=== PATIENT | male | born 1965 | race Two or more races ===

== ENCOUNTER 2020-12-25 04:27 | Day surgery (SDC) | payer OTHER ==
[2020-12-24 14:43] VITALS: BMI 23.8
[2020-12-25] MEDS ORDERED: ceFAZolin SODIUM 1 GM VIAL IVPB ONE (08:24)
[2020-12-25] MEDS ORDERED: HEPARIN NA (PORCINE) 5,000 UNITS/ML 1ML VIAL ONE ×2 (08:35→08:54)
[2020-12-25] MEDS ORDERED: LIDOCAINE HCL 1%, 10 MG/ML (20ML VIAL) ONE (08:35)
[2020-12-25] MEDS ORDERED: BUPIVACAINE HCL/PF 0.5% (5MG/ML) 10 ML VIAL ONE (08:36)
[2020-12-25] MEDS ORDERED: PROPOFOL 20 ML ONE ×3 (08:54→09:36)
[2020-12-25] MEDS ORDERED: LIDOCAINE HCL/PF 2% SDV 5ML VIAL ONE (08:54)
[2020-12-25] MEDS ORDERED: MIDAZOLAM HCL 2 MG/2 ML SINGLE DOSE VIAL ONE (08:54)
[2020-12-25] MEDS ORDERED: ceFAZolin SODIUM 1 GM VIAL ONE (09:23)
[2020-12-25] MEDS ORDERED: LIDOCAINE HCL 1%, 10 MG/ML (20ML VIAL) PNB ONE (09:26)
[2020-12-25] MEDS ORDERED: HEPARIN NA (PORCINE) 5,000 UNITS/ML 1ML VIAL SQ ONE (09:30)
[2020-12-25] MEDS ORDERED: PHENYLEPHRINE HCL 10 MG/1 ML SINGLE DOSE VIAL ONE (09:50)
[2020-12-25] MEDS ORDERED: oxyCODONE HCL 5 MG TABLET PO PRN (10:17)
[2020-12-25] MEDS ORDERED: ONDANSETRON 4 MG/2 ML VIAL IVPUSH PRN ×2 (10:17→10:36)
[2020-12-25] MEDS ORDERED: LACTATED RINGERS SOLUTION 1,000 ML IV SCH (10:30)
[2020-12-25] MEDS: CLOPIDOGREL BISULFATE 75 MG TABLET (FP) PO SCH (10:45)
[2020-12-25] MEDS: oxyCODONE HCL 5 MG TABLET PO PRN (13:38)
[2020-12-26] MEDS: oxyCODONE HCL 5 MG TABLET PO PRN (06:34)
[2020-12-26] MEDS ORDERED: glipiZIDE 5 MG TABLET (FP) PO SCH (07:00)
[2020-12-26] MEDS: LACTATED RINGERS SOLUTION 1,000 ML IV SCH ×2 (07:16→09:21)
[2020-12-26] MEDS: CLOPIDOGREL BISULFATE 75 MG TABLET (FP) PO SCH (09:25)
[2020-12-26] MEDS ORDERED: LOSARTAN POTASSIUM 25 MG TABLET PO SCH (10:00)
[2020-12-26 14:06] VITALS: BP 118/69; PULSE 90; TEMP 98
[2020-12-26] MEDS ORDERED: ATORVASTATIN CA 20 MG TABLET (FP) PO SCH (22:00)
== END 2020-12-26 14:33 | disposition home or self-care (01) ==
LOC: JASUSAT 04:27 → JASU-SURG 04:27 → JERBED 12:42 → J5S 13:15 → JASUSAT 12-26 14:33
PROVIDERS: ATTEND Surgery Vascular Surgery
PROC: 047K3D1 Dilation of Right Femoral Artery with Intraluminal Device, using Drug-Coated Balloon, Percutaneous Approach (ICD-10-PCS; principal; 2020-12-25 09:00)
DX: I70.211 Atherosclerosis of native arteries of extremities with intermittent claudication, right leg (principal); E11.9 Type 2 diabetes mellitus without complications
CPT/HCPCS: 37227; C1877; C2623; 76000-TC-FY; 82962; 94760; J1644

== ENCOUNTER 2021-01-07 04:17 | Day surgery (SDC) | payer OTHER ==
[2021-01-07 12:06] VITALS: BMI 23.8
[2021-01-07] MEDS ORDERED: HEPARIN NA (PORCINE) 5,000 UNITS/ML 1ML VIAL ONE ×3 (14:55→15:21)
[2021-01-07] MEDS ORDERED: LIDOCAINE HCL 1%, 10 MG/ML (20ML VIAL) ONE (14:55)
[2021-01-07] MEDS ORDERED: LIDOCAINE HCL/PF 2% SDV 5ML VIAL ONE (15:06)
[2021-01-07] MEDS ORDERED: PROPOFOL 20 ML ONE (15:07)
[2021-01-07] MEDS ORDERED: KETAMINE HCL 200 MG/20 ML VIAL ONE (15:07)
[2021-01-07] MEDS ORDERED: ceFAZolin SODIUM 1 GM VIAL ONE (15:20)
[2021-01-07] MEDS ORDERED: ceFAZolin SODIUM 1 GM VIAL IVPB ONE (15:33)
[2021-01-07] MEDS ORDERED: LIDOCAINE HCL 1%, 10 MG/ML (20ML VIAL) INF ONE (15:47)
[2021-01-07] MEDS ORDERED: oxyCODONE HCL 5 MG TABLET PO PRN (15:48)
[2021-01-07] MEDS ORDERED: ONDANSETRON 4 MG/2 ML VIAL IVPUSH PRN (15:48)
[2021-01-07] MEDS ORDERED: ACETAMINOPHEN 325 MG TABLET (FP) PO PRN (15:48)
[2021-01-07] MEDS ORDERED: CLOPIDOGREL BISULFATE 75 MG TABLET (FP) ONE (16:29)
[2021-01-07] MEDS ORDERED: CLOPIDOGREL BISULFATE 75 MG TABLET (FP) PO ONE (16:30)
[2021-01-07 19:15] VITALS: BP 114/79; PULSE 74; TEMP 97.5
== END 2021-01-07 19:10 | disposition home or self-care (01) ==
LOC: JASU-SURG 04:17
PROVIDERS: ATTEND Surgery Vascular Surgery
PROC: 047M3DZ Dilation of Right Popliteal Artery with Intraluminal Device, Percutaneous Approach (ICD-10-PCS; 2021-01-07)
PROC: 047K34Z Dilation of Right Femoral Artery with Drug-eluting Intraluminal Device, Percutaneous Approach (ICD-10-PCS; principal; 2021-01-07 14:00)
DX: I70.211 Atherosclerosis of native arteries of extremities with intermittent claudication, right leg (principal); Z72.0 Tobacco use; E11.9 Type 2 diabetes mellitus without complications; I10 Essential (primary) hypertension
CPT/HCPCS: 37226; C1877; 76000-TC-FY; 82962; 94760; C9803; J1644; U0003; U0005

== ENCOUNTER 2021-01-09 15:08 | Emergency (ER) | payer OTHER ==
[2021-01-09 15:31] VITALS: TEMP 97.9; BMI 24.0
[2021-01-09 17:53] LABS: BASO % 0.5 % (0-2.0); EOS % 8.7 % (0-4.5); HEMATOCRIT 43.7 % (35.4-49); HEMOGLOBIN 14.9 GM/dL (11.7-16.9); LYMPH % 19.4 % (8-40); MCH 29.4 pg (25.7-33.7); MCHC 34.1 g/dl (32.0-35.9); MEAN CELL VOLUME 86.4 fl (80-96); MEAN PLT VOLUME 10.1 fl (7.5-11.1); MONO % 6.7 % (3.8-10.2); NEUT % 64.7 % (42.8-82.8); PLATELET COUNT 71 10^3/uL (134-434); RBC 5.06 M/mm3 (4.00-5.60); RDW 13.6 % (11.9-15.9); WHITE BLOOD COUNT 8.5 K/mm3 (4.0-10.0)
[2021-01-09 18:01] LABS: INR 1.26 (0.83-1.09); PROTHROMBIN TIME (PATIENT) 14.1 SEC (9.7-13.0)
[2021-01-09 18:04] LABS: ACTIVATED PTT 29.3 SECONDS (25.2-36.5)
[2021-01-09 18:31] LABS: CHLORIDE 104 mmol/L (98-107); SODIUM 138 mmol/L (136-145)
[2021-01-09 18:36] LABS: ALBUMIN 3.5 g/dl (3.4-5.0); ANION GAP 8 MMOL/L (8-16); BLOOD UREA NITROGEN 6.3 mg/dL (7-18); CALCIUM 8.3 mg/dL (8.5-10.1); CO2 25 mmol/L (21-32); GLUCOSE,RANDOM 85 mg/dL (74-106)
[2021-01-09 18:40] LABS: CREATININE 0.8 mg/dL (0.55-1.3); SGOT/AST 27 U/L (15-37); SGPT/ALT 36 U/L (13-61)
[2021-01-09 18:42] LABS: ALK PHOS 83 U/L (45-117); TOT PROT 7.6 g/dl (6.4-8.2)
[2021-01-09 19:47] VITALS: BP 117/77; PULSE 81
[2021-01-09] MEDS ORDERED: ACETAMINOPHEN 500 MG TABLET (FP) PO ONE (20:36)
[2021-01-09] MEDS ORDERED: ACETAMINOPHEN 325 MG TABLET (FP) ONE (21:47)
== END 2021-01-10 01:02 | disposition home or self-care (01) ==
LOC: JER 15:08
DX: I70.211 Atherosclerosis of native arteries of extremities with intermittent claudication, right leg (principal)
CPT/HCPCS: 36415; 71045-TC-FY; 73630-TC-RT-FY; 75635-TC; 80053; 82550; 82553; 83605; 84484; 85025; 85610; 85730; 86850; 86900; 86901; 93005; 93010; 99285-25; C9803; U0003; U0005

== ENCOUNTER 2021-02-05 15:34 | Emergency (ER) | payer OTHER ==
[2021-02-05 16:03] VITALS: TEMP 97.8; BMI 21.7
[2021-02-05 19:34] LABS: BASO % 0.7 % (0-2.0); EOS % 4.3 % (0-4.5); HEMATOCRIT 44.7 % (35.4-49); HEMOGLOBIN 15.2 GM/dL (11.7-16.9); LYMPH % 27.9 % (8-40); MCHC 33.9 g/dl (32.0-35.9); MEAN CELL VOLUME 85.6 fl (80-96); MONO % 7.7 % (3.8-10.2); NEUT % 59.4 % (42.8-82.8); RBC 5.22 M/mm3 (4.00-5.60); RDW 13.8 % (11.9-15.9); WHITE BLOOD COUNT 7.9 K/mm3 (4.0-10.0)
[2021-02-05 19:44] LABS: INR 1.19 (0.83-1.09); PROTHROMBIN TIME (PATIENT) 13.4 SEC (9.7-13.0)
[2021-02-05 19:47] LABS: ACTIVATED PTT 27.3 SECONDS (25.2-36.5)
[2021-02-05 20:00] LABS: CALCIUM 9.2 mg/dL (8.5-10.1)
[2021-02-05 20:01] LABS: ALBUMIN 3.9 g/dl (3.4-5.0)
[2021-02-05 20:04] LABS: CREATININE 0.8 mg/dL (0.55-1.3)
[2021-02-05 20:05] LABS: BILIRUBIN,TOTAL 1.1 mg/dL (0.2-1); TOT PROT 7.7 g/dl (6.4-8.2)
[2021-02-05] MEDS ORDERED: GABAPENTIN 300 MG CAPSULE PO ONE (20:06)
[2021-02-05] MEDS ORDERED: GABAPENTIN 100 MG CAPSULE ONE (20:23)
[2021-02-05 20:25] LABS: MEAN PLT VOLUME 8.9 fl (7.5-11.1); PLATELET COUNT 65 10^3/uL (134-434); PLATELET ESTIMATE MOD DECREASED
[2021-02-05 22:21] VITALS: BP 129/78; PULSE 88
== END 2021-02-05 22:21 | disposition left against medical advice (07) ==
LOC: JER 15:34
DX: I70.211 Atherosclerosis of native arteries of extremities with intermittent claudication, right leg (principal); M79.604 Pain in right leg
CPT/HCPCS: 36415; 80053; 85025; 85610; 85730; 86850; 86900; 86901; 99284-25

== ENCOUNTER 2021-02-08 16:21 | Emergency (ER) | payer OTHER ==
[2021-02-08 16:30] VITALS: BP 104/64; PULSE 105; TEMP 98; BMI 21.7
[2021-02-08 19:35] LABS: ALBUMIN 3.5 g/dl (3.4-5.0); BLOOD UREA NITROGEN 7.7 mg/dL (7-18); CALCIUM 8.9 mg/dL (8.5-10.1)
[2021-02-08 19:39] LABS: CREATININE 0.8 mg/dL (0.55-1.3)
[2021-02-08 19:40] LABS: BILIRUBIN,TOTAL 0.6 mg/dL (0.2-1); TOT PROT 7.2 g/dl (6.4-8.2)
== END 2021-02-08 22:45 | disposition home or self-care (01) ==
LOC: JER 16:21
DX: I70.211 Atherosclerosis of native arteries of extremities with intermittent claudication, right leg (principal)
CPT/HCPCS: 36415; 75635-TC; 80053; 83605; 99284-25; Q9967

== ENCOUNTER 2021-02-09 14:21 | Inpatient (IN) | payer OTHER ==
[2021-02-09 16:47] LABS: BASO % 1.5 % (0-2.0); EOS % 2.6 % (0-4.5); HEMATOCRIT 47.5 % (35.4-49); HEMOGLOBIN 16.4 GM/dL (11.7-16.9); MCH 29.8 pg (25.7-33.7); MCHC 34.6 g/dl (32.0-35.9); MEAN CELL VOLUME 86.2 fl (80-96); MEAN PLT VOLUME 9.7 fl (7.5-11.1); MONO % 7.1 % (3.8-10.2); NEUT % 63.8 % (42.8-82.8); PLATELET COUNT 69 10^3/uL (134-434); RBC 5.51 M/mm3 (4.00-5.60); RDW 13.5 % (11.9-15.9); WHITE BLOOD COUNT 8.1 K/mm3 (4.0-10.0)
[2021-02-09 16:53] LABS: INR 1.16 (0.83-1.09); PROTHROMBIN TIME (PATIENT) 13.6 SEC (9.7-13.0)
[2021-02-09 16:55] LABS: ACTIVATED PTT 30.2 SECONDS (25.2-36.5)
[2021-02-09 17:09] LABS: CALCIUM 9.3 mg/dL (8.5-10.1)
[2021-02-09 17:10] LABS: BLOOD UREA NITROGEN 7.4 mg/dL (7-18)
[2021-02-09 17:15] LABS: TOT PROT 8.6 g/dl (6.4-8.2)
[2021-02-09 17:18] LABS: ALBUMIN 4.4 g/dl (3.4-5.0)
[2021-02-09] MEDS ORDERED: HEPARIN NA (PORCINE) 5,000 UNITS/ML 1ML VIAL ONE (20:30)
[2021-02-09] MEDS ORDERED: LIDOCAINE HCL 1%, 10 MG/ML (20ML VIAL) ONE (20:30)
[2021-02-09] MEDS ORDERED: MIDAZOLAM HCL 2 MG/2 ML SINGLE DOSE VIAL ONE (20:46)
[2021-02-09] MEDS ORDERED: PROPOFOL 20 ML ONE (20:46)
[2021-02-09] MEDS ORDERED: SUCCINYLCHOLINE CHLORIDE 200 MG/10 ML SYRINGE ONE (20:52)
[2021-02-09] MEDS ORDERED: ceFAZolin SODIUM 1 GM VIAL IVPB ONE (20:55)
[2021-02-09] MEDS ORDERED: LIDOCAINE HCL 1%, 10 MG/ML (50 mL VIAL) INF ONE (20:59)
[2021-02-09] MEDS ORDERED: HEPARIN INFUSION - 25,000 UNITS/500 ML INFUS.BAG IVPB ONE (21:39)
[2021-02-09] MEDS ORDERED: ALTEPLASE (CATHFLO) 15 MG in SODIUM CHLORIDE 135 ML CVP ONE (22:30)
[2021-02-09] MEDS ORDERED: SODIUM CHLORIDE 1,000 ML IV SCH (23:45)
[2021-02-09] MEDS ORDERED: HEPARIN INFUSION - 25,000 UNITS/500 ML INFUS.BAG IVPB SCH (23:45)
[2021-02-10] MEDS ORDERED: morphine SULFATE 4 MG/ML VIAL IVPUSH PRN (00:22)
[2021-02-10 04:02] LABS: BASO % 1.1 % (0-2.0); EOS % 1.9 % (0-4.5); HEMATOCRIT 41.5 % (35.4-49); HEMOGLOBIN 14.2 GM/dL (11.7-16.9); LYMPH % 19.9 % (8-40); MCH 29.4 pg (25.7-33.7); MCHC 34.2 g/dl (32.0-35.9); MEAN PLT VOLUME 9.4 fl (7.5-11.1); MONO % 7.5 % (3.8-10.2); NEUT % 69.6 % (42.8-82.8); PLATELET COUNT 50 10^3/uL (134-434); RBC 4.83 M/mm3 (4.00-5.60); RDW 13.5 % (11.9-15.9); WHITE BLOOD COUNT 10.8 K/mm3 (4.0-10.0)
[2021-02-10 04:09] LABS: INR 1.27 (0.83-1.09); PROTHROMBIN TIME (PATIENT) 14.9 SEC (9.7-13.0)
[2021-02-10 04:21] LABS: CALCIUM 8.2 mg/dL (8.5-10.1)
[2021-02-10 04:25] LABS: CREATININE 0.7 mg/dL (0.55-1.3)
[2021-02-10] MEDS: INSULIN SLIDING SCALE (NOVOLOG) 1 VIAL SQ SCH ×4 (06:44→22:36)
[2021-02-10] MEDS ORDERED: MUPIROCIN 2% TOPICAL OINTMENT FOR DECOLONIZATION NS SCH (10:00)
[2021-02-10] MEDS: KCL 10 MEQ IVPB 10 MEQ/100 ML INFUS.BAG IVPB SCH ×2 (10:22→12:04)
[2021-02-10 10:44] LABS: EOS % 1.4 % (0-4.5); HEMATOCRIT 40.6 % (35.4-49); HEMOGLOBIN 13.9 GM/dL (11.7-16.9); LYMPH % 18.7 % (8-40); MCH 29.4 pg (25.7-33.7); MCHC 34.3 g/dl (32.0-35.9); MEAN CELL VOLUME 85.6 fl (80-96); MEAN PLT VOLUME 9.9 fl (7.5-11.1); MONO % 7.8 % (3.8-10.2); NEUT % 71.1 % (42.8-82.8); PLATELET COUNT 49 10^3/uL (134-434); RBC 4.75 M/mm3 (4.00-5.60); WHITE BLOOD COUNT 9.3 K/mm3 (4.0-10.0)
[2021-02-10 10:46] LABS: INR 1.23 (0.83-1.09); PROTHROMBIN TIME (PATIENT) 14.4 SEC (9.7-13.0)
[2021-02-10 10:49] LABS: ACTIVATED PTT 63.3 SECONDS (25.2-36.5)
[2021-02-10 11:03] LABS: BLOOD UREA NITROGEN 8.1 mg/dL (7-18); CALCIUM 8.1 mg/dL (8.5-10.1)
[2021-02-10 11:06] LABS: CREATININE 0.6 mg/dL (0.55-1.3)
[2021-02-10] MEDS ORDERED: LORazepam 2 MG/ML SDV VIAL IM ONE ×2 (11:52→11:59)
[2021-02-10] MEDS ORDERED: ALTEPLASE (CATHFLO) 15 MG in SODIUM CHLORIDE 135 ML CVP ONE ×3 (12:00→12:53)
[2021-02-10] MEDS ORDERED: PT OWN MED DRAWER 7, Y5N ONE (14:15)
[2021-02-10] MEDS ORDERED: ceFAZolin SODIUM 1 GM VIAL IVPB ONE (19:59)
[2021-02-10] MEDS ORDERED: HEPARIN NA (PORCINE) 5,000 UNITS/ML 1ML VIAL ONE (20:06)
[2021-02-10] MEDS ORDERED: MIDAZOLAM HCL 2 MG/2 ML SINGLE DOSE VIAL ONE ×2 (20:11)
[2021-02-10] MEDS ORDERED: LIDOCAINE HCL 1%, 10 MG/ML (20ML VIAL) INF ONE (20:18)
[2021-02-10 20:43] LABS: HEMATOCRIT 35.6 % (35.4-49); HEMOGLOBIN 12.1 GM/dL (11.7-16.9); MCH 29.3 pg (25.7-33.7); MEAN CELL VOLUME 86.1 fl (80-96); PLATELET COUNT 38 10^3/uL (134-434); RBC 4.14 M/mm3 (4.00-5.60); RDW 13.7 % (11.9-15.9); WHITE BLOOD COUNT 7.9 K/mm3 (4.0-10.0)
[2021-02-10] MEDS ORDERED: CHLORHEXIDINE GLUCONATE 4% CLEANSER FOR DECOLONIZATION TP SCH (22:00)
[2021-02-10] MEDS: SODIUM CHLORIDE 1,000 ML IV SCH (22:34)
[2021-02-10] MEDS: NICOTINE 21 MG/24 HOURS TOPICAL PATCH TD SCH (22:34)
[2021-02-10] MEDS: CHLORHEXIDINE GLUCONATE 4% CLEANSER FOR DECOLONIZATION TP SCH (22:35)
[2021-02-10] MEDS: MUPIROCIN 2% TOPICAL OINTMENT FOR DECOLONIZATION NS SCH (22:50)
[2021-02-11] MEDS ORDERED: MELATONIN 5 MG TABLETS PO ONE (00:08)
[2021-02-11] MEDS ORDERED: APIXABAN 5 MG TABLET PO SCH (02:00)
[2021-02-11] MEDS: INSULIN SLIDING SCALE (NOVOLOG) 1 VIAL SQ SCH ×4 (06:36→21:02)
[2021-02-11 07:08] LABS: INR 1.54 (0.83-1.09); PROTHROMBIN TIME (PATIENT) 18.1 SEC (9.7-13.0)
[2021-02-11 07:09] LABS: BASO % 0.7 % (0-2.0); EOS % 3.4 % (0-4.5); HEMATOCRIT 33.6 % (35.4-49); HEMOGLOBIN 11.3 GM/dL (11.7-16.9); LYMPH % 18.2 % (8-40); MCHC 33.8 g/dl (32.0-35.9); MEAN CELL VOLUME 85.7 fl (80-96); MEAN PLT VOLUME 9.9 fl (7.5-11.1); MONO % 8.1 % (3.8-10.2); NEUT % 69.6 % (42.8-82.8); PLATELET COUNT 40 10^3/uL (134-434); RBC 3.91 M/mm3 (4.00-5.60); RDW 13.7 % (11.9-15.9); WHITE BLOOD COUNT 9.1 K/mm3 (4.0-10.0)
[2021-02-11 07:11] LABS: ACTIVATED PTT 29.1 SECONDS (25.2-36.5)
[2021-02-11 07:33] LABS: BLOOD UREA NITROGEN 14.5 mg/dL (7-18); CALCIUM 7.9 mg/dL (8.5-10.1); MAGNESIUM 2.2 mg/dL (1.8-2.4)
[2021-02-11 07:36] LABS: CREATININE 0.9 mg/dL (0.55-1.3)
[2021-02-11 07:47] LABS: ALBUMIN 3.3 g/dl (3.4-5.0); TOT PROT 6.4 g/dl (6.4-8.2)
[2021-02-11] MEDS ORDERED: HEPARIN NA (PORCINE) 5,000 UNITS/ML 1ML VIAL IVPUSH PRN ×3 (08:49→20:14)
[2021-02-11] MEDS ORDERED: HEPARIN - 25,000 UNIT in SODIUM CHLORIDE 495 ML IV SCH (09:15)
[2021-02-11] MEDS: GABAPENTIN 100 MG CAPSULE PO SCH (09:26)
[2021-02-11] MEDS: LOSARTAN POTASSIUM 25 MG TABLET PO SCH (09:28)
[2021-02-11] MEDS: NICOTINE 21 MG/24 HOURS TOPICAL PATCH TD SCH (09:30)
[2021-02-11] MEDS: ATORVASTATIN CA 20 MG TABLET (FP) PO SCH (09:30)
[2021-02-11] MEDS ORDERED: PT OWN MED DRAWER 7, Y5N ONE ×2 (09:40→10:44)
[2021-02-11] MEDS: MUPIROCIN 2% TOPICAL OINTMENT FOR DECOLONIZATION NS SCH ×2 (09:41→21:02)
[2021-02-11 12:17] LABS: ERYTHROCYTE SEDIMENTATION RATE 16 mm/hr (0-20)
[2021-02-11] MEDS: SODIUM CHLORIDE 1,000 ML IV SCH (13:55)
[2021-02-11] MEDS ORDERED: ACETAMINOPHEN 1000 MG/100 ML VIAL IVPB PRN (14:15)
[2021-02-11] MEDS: morphine SULFATE 4 MG/ML VIAL IVPUSH PRN (14:27)
[2021-02-11 15:59] VITALS: BMI 20.5
[2021-02-11] MEDS ORDERED: HEPARIN NA (PORCINE) 5,000 UNITS/ML 1ML VIAL ONE (16:10)
[2021-02-11] MEDS ORDERED: LIDOCAINE HCL 1%, 10 MG/ML (20ML VIAL) ONE (16:10)
[2021-02-11] MEDS ORDERED: MIDAZOLAM HCL 2 MG/2 ML SINGLE DOSE VIAL ONE (18:23)
[2021-02-11] MEDS ORDERED: ceFAZolin SODIUM 1 GM VIAL ONE (18:28)
[2021-02-11] MEDS ORDERED: PROPOFOL 20 ML ONE ×2 (18:33)
[2021-02-11] MEDS ORDERED: ceFAZolin SODIUM 1 GM VIAL IVPB ONE ×2 (18:35)
[2021-02-11] MEDS ORDERED: LIDOCAINE HCL 1%, 10 MG/ML (50 mL VIAL) INF ONE (18:42)
[2021-02-11] MEDS ORDERED: HEPARIN SOD,PORK IN 0.45% NACL 25,000 UNITS/500 ML INFUS.BAG IVPB SCH (20:15)
[2021-02-11] MEDS ORDERED: diphenhydrAMINE HCL 25 MG CAPSULE (FP) PO ONE (20:26)
[2021-02-11] MEDS: LORazepam 2 MG/ML SDV VIAL IVPUSH SCH (20:45)
[2021-02-11] MEDS: CHLORHEXIDINE GLUCONATE 4% CLEANSER FOR DECOLONIZATION TP SCH (21:02)
[2021-02-11] MEDS ORDERED: MUPIROCIN 2% TOPICAL OINTMENT FOR DECOLONIZATION NS SCH (22:00)
[2021-02-11] MEDS ORDERED: CHLORHEXIDINE GLUCONATE 4% CLEANSER FOR DECOLONIZATION TP SCH (22:00)
[2021-02-12] MEDS: morphine SULFATE 4 MG/ML VIAL IVPUSH PRN (02:03)
[2021-02-12] MEDS: LORazepam 2 MG/ML SDV VIAL IVPUSH SCH ×2 (07:13→13:36)
[2021-02-12] MEDS: INSULIN SLIDING SCALE (NOVOLOG) 1 VIAL SQ SCH ×2 (07:13→10:58)
[2021-02-12] MEDS ORDERED: PT OWN MED DRAWER 7, Y5N ONE (07:15)
[2021-02-12] MEDS: metFORMIN HCL 500 MG TABLET (FP) PO SCH ×2 (07:15→07:47)
[2021-02-12] MEDS: glipiZIDE 5 MG TABLET (FP) PO SCH ×2 (07:16→07:50)
[2021-02-12] MEDS: SODIUM CHLORIDE 1,000 ML IV SCH (07:16)
[2021-02-12] MEDS ORDERED: SODIUM CHLORIDE 250 ML IV STA (10:12)
[2021-02-12] MEDS: ATORVASTATIN CA 20 MG TABLET (FP) PO SCH (11:07)
[2021-02-12] MEDS: GABAPENTIN 100 MG CAPSULE PO SCH (11:07)
[2021-02-12] MEDS: LOSARTAN POTASSIUM 25 MG TABLET PO SCH (11:07)
[2021-02-12] MEDS: NICOTINE 21 MG/24 HOURS TOPICAL PATCH TD SCH (11:08)
[2021-02-12] MEDS: MUPIROCIN 2% TOPICAL OINTMENT FOR DECOLONIZATION NS SCH (11:08)
[2021-02-12] MEDS ORDERED: ACETAMINOPHEN 1000 MG/100 ML VIAL IVPB PRN (11:32)
[2021-02-12] MEDS ORDERED: SODIUM CHLORIDE 1,000 ML IV SCH (11:32)
[2021-02-12] MEDS ORDERED: morphine SULFATE 4 MG/ML VIAL IVPUSH PRN (11:32)
[2021-02-12 13:40] VITALS: TEMP 98.4
[2021-02-12] MEDS ORDERED: ENOXAPARIN NA (PORCINE) 60 MG/0.6 ML DISP.SYRIN SQ SCH ×2 (13:45→14:01)
[2021-02-12] MEDS ORDERED: APIXABAN 5 MG TABLET PO ONE (15:35)
[2021-02-12] MEDS ORDERED: INSULIN SLIDING SCALE (NOVOLOG) 1 VIAL SQ SCH (16:30)
[2021-02-12] MEDS ORDERED: glipiZIDE 5 MG TABLET (FP) PO SCH (16:30)
[2021-02-12] MEDS ORDERED: metFORMIN HCL 500 MG TABLET (FP) PO SCH (16:30)
[2021-02-12 16:31] VITALS: BP 115/87; PULSE 120
[2021-02-12 17:27] LABS: INR 1.33 (0.83-1.09); PROTHROMBIN TIME (PATIENT) 15.6 SEC (9.7-13.0)
[2021-02-12] MEDS ORDERED: WARFARIN NA 5 MG TABLET PO SCH (18:00)
[2021-02-12] MEDS ORDERED: CHLORHEXIDINE GLUCONATE 4% CLEANSER FOR DECOLONIZATION TP SCH (22:00)
[2021-02-12] MEDS ORDERED: MUPIROCIN 2% TOPICAL OINTMENT FOR DECOLONIZATION NS SCH (22:00)
[2021-02-13] MEDS ORDERED: GABAPENTIN 100 MG CAPSULE PO SCH (10:00)
[2021-02-13] MEDS ORDERED: NICOTINE 21 MG/24 HOURS TOPICAL PATCH TD SCH (10:00)
[2021-02-13] MEDS ORDERED: LOSARTAN POTASSIUM 25 MG TABLET PO SCH (10:00)
[2021-02-13] MEDS ORDERED: ATORVASTATIN CA 20 MG TABLET (FP) PO SCH (22:00)
== END 2021-02-12 16:30 | disposition home or self-care (01) | DRG 272 ==
LOC: JER 14:21 → JASUSAT 15:15 → JICU 23:39 → JASUSAT 02-10 00:18
PROVIDERS: ADMIT Surgery Vascular Surgery; ATTEND Surgery Vascular Surgery
PROC: 047K341 Dilation of Right Femoral Artery with Drug-eluting Intraluminal Device, using Drug-Coated Balloon, Percutaneous Approach (ICD-10-PCS; 2021-02-10)
PROC: B41DZZZ Fluoroscopy of Aorta and Bilateral Lower Extremity Arteries (ICD-10-PCS; 2021-02-10)
PROC: 3E03317 Introduction of Other Thrombolytic into Peripheral Vein, Percutaneous Approach (ICD-10-PCS; 2021-02-10)
PROC: B41DZZZ Fluoroscopy of Aorta and Bilateral Lower Extremity Arteries (ICD-10-PCS; 2021-02-10)
PROC: 04CK3ZZ Extirpation of Matter from Right Femoral Artery, Percutaneous Approach (ICD-10-PCS; 2021-02-11)
PROC: 047P341 Dilation of Right Anterior Tibial Artery with Drug-eluting Intraluminal Device, using Drug-Coated Balloon, Percutaneous Approach (ICD-10-PCS; 2021-02-11)
PROC: 047K341 Dilation of Right Femoral Artery with Drug-eluting Intraluminal Device, using Drug-Coated Balloon, Percutaneous Approach (ICD-10-PCS; 2021-02-11)
PROC: 3E05317 Introduction of Other Thrombolytic into Peripheral Artery, Percutaneous Approach (ICD-10-PCS; 2021-02-11)
PROC: 04CP3ZZ Extirpation of Matter from Right Anterior Tibial Artery, Percutaneous Approach (ICD-10-PCS; principal; 2021-02-11 17:30)
DX: E11.51 Type 2 diabetes mellitus with diabetic peripheral angiopathy without gangrene (principal); I74.3 Embolism and thrombosis of arteries of the lower extremities; D69.6 Thrombocytopenia, unspecified; I10 Essential (primary) hypertension; E78.5 Hyperlipidemia, unspecified; D64.9 Anemia, unspecified; I70.221 Atherosclerosis of native arteries of extremities with rest pain, right leg; E11.40 Type 2 diabetes mellitus with diabetic neuropathy, unspecified; E87.6 Hypokalemia
CPT/HCPCS: 36415; 71045-TC-FY; 76000-TC-FY; 80048; 80053; 82607; 82746; 82784; 82962; 83735; 84100; 84443; 85025; 85027; 85384; 85610; 85651; 85730; 86022; 86850; 86900; 86901; 93005; 93010; 94760; 97116-GP; 97162-GP; 99285-25; C9803; J1644; J2997; U0003; U0005

== ENCOUNTER 2021-04-06 11:29 | Inpatient (IN) | payer OTHER ==
[2021-04-06] MEDS: INSULIN SLIDING SCALE (NOVOLOG) 1 VIAL SQ SCH ×2 (14:00→21:56)
[2021-04-06 14:58] LABS: CALCIUM 8.5 mg/dL (8.5-10.1)
[2021-04-06 14:59] LABS: ALBUMIN 2.6 g/dl (3.4-5.0)
[2021-04-06 15:00] LABS: BLOOD UREA NITROGEN 5.3 mg/dL (7-18)
[2021-04-06] MEDS ORDERED: ATORVASTATIN CA 20 MG TABLET (FP) PO SCH (15:00)
[2021-04-06 15:01] LABS: CREATININE 0.7 mg/dL (0.55-1.3); INR 1.52 (0.83-1.09); PROTHROMBIN TIME (PATIENT) 17.5 SEC (9.7-13.0)
[2021-04-06 15:04] LABS: ACTIVATED PTT 22.8 SECONDS (25.2-36.5); BILIRUBIN,TOTAL 1.1 mg/dL (0.2-1); TOT PROT 7.6 g/dl (6.4-8.2)
[2021-04-06 15:30] LABS: MAGNESIUM 2.2 mg/dL (1.8-2.4)
[2021-04-06 15:31] LABS: PHOSPHOROUS 3.4 mg/dL (2.5-4.9)
[2021-04-06] MEDS: GABAPENTIN 300 MG CAPSULE PO SCH (17:00)
[2021-04-06] MEDS: SODIUM CHLORIDE 1,000 ML IV SCH (17:00)
[2021-04-06] MEDS: CLOPIDOGREL BISULFATE 75 MG TABLET (FP) PO SCH (17:00)
[2021-04-06 17:07] LABS: BASO % 0.4 % (0-2.0); EOS % 0.4 % (0-4.5); HEMATOCRIT 36.9 % (35.4-49); HEMOGLOBIN 12.1 GM/dL (11.7-16.9); LYMPH % 10.5 % (8-40); MCH 25.6 pg (25.7-33.7); MCHC 32.7 g/dl (32.0-35.9); MEAN CELL VOLUME 78.2 fl (80-96); MEAN PLT VOLUME 10.3 fl (7.5-11.1); MONO % 6.7 % (3.8-10.2); PLATELET COUNT 178 10^3/uL (134-434); RBC 4.72 M/mm3 (4.00-5.60); RDW 16.4 % (11.9-15.9); WHITE BLOOD COUNT 14.1 K/mm3 (4.0-10.0)
[2021-04-06] MEDS ORDERED: GABAPENTIN 100 MG CAPSULE ONE (20:17)
[2021-04-06] MEDS ORDERED: CLOPIDOGREL BISULFATE 75 MG TABLET (FP) ONE (20:17)
[2021-04-06] MEDS ORDERED: ATORVASTATIN CA 20 MG TABLET (FP) ONE (20:17)
[2021-04-06] MEDS ORDERED: PIPERACILLIN/TAZOB 3.375 GM 3.375 GM/50 ML BAG IVPB ONE (20:18)
[2021-04-06] MEDS: PIPERACILLIN/TAZOB 3.375 GM 3.375 GM in DEXTROSE 5%-WATER - 50 ML IVPB SCH (20:31)
[2021-04-06 23:01] LABS: URINE APPEARANCE CLEAR; URINE BILIRUBIN NEGATIVE (NEGATIVE); URINE COLOR YELLOW; URINE GLUCOSE (UA) NEGATIVE (NEGATIVE); URINE KETONE NEGATIVE (NEGATIVE); URINE LEUK ESTERASE NEGATIVE (NEGATIVE); URINE NITRITE NEGATIVE (NEGATIVE); URINE PROTEIN NEGATIVE (NEGATIVE)
[2021-04-07] MEDS ORDERED: PIPERACILLIN/TAZOBACTAM 3.375 GM VIAL IVPB ONE ×3 (03:29→15:40)
[2021-04-07] MEDS ORDERED: DEXTROSE 5%-WATER - 50 ML IVPB ONE ×2 (03:29→15:05)
[2021-04-07] MEDS: SODIUM CHLORIDE 1,000 ML IV SCH ×2 (03:32→15:41)
[2021-04-07] MEDS: PIPERACILLIN/TAZOB 3.375 GM 3.375 GM in DEXTROSE 5%-WATER - 50 ML IVPB SCH (03:32)
[2021-04-07 04:49] VITALS: BMI 30.7
[2021-04-07] MEDS: INSULIN SLIDING SCALE (NOVOLOG) 1 VIAL SQ SCH ×4 (06:21→21:17)
[2021-04-07] MEDS: GABAPENTIN 300 MG CAPSULE PO SCH (09:36)
[2021-04-07] MEDS: CLOPIDOGREL BISULFATE 75 MG TABLET (FP) PO SCH (09:37)
[2021-04-07] MEDS ORDERED: PIPERACILLIN/TAZOB 3.375 GM 3.375 GM in DEXTROSE 5%-WATER - 50 ML IVPB SCH ×2 (10:00→15:00)
[2021-04-07] MEDS ORDERED: LOSARTAN POTASSIUM 25 MG TABLET PO SCH (10:00)
[2021-04-07 11:55] LABS: HEMATOCRIT 35.6 % (35.4-49); HEMOGLOBIN 11.4 GM/dL (11.7-16.9); MCH 25.2 pg (25.7-33.7); MEAN CELL VOLUME 78.8 fl (80-96); PLATELET COUNT 171 10^3/uL (134-434); RBC 4.52 M/mm3 (4.00-5.60); RDW 16.9 % (11.9-15.9); WHITE BLOOD COUNT 17.6 K/mm3 (4.0-10.0)
[2021-04-07 12:36] LABS: BLOOD UREA NITROGEN 8.4 mg/dL (7-18)
[2021-04-07 12:37] LABS: CALCIUM 8.4 mg/dL (8.5-10.1)
[2021-04-07 12:41] LABS: CREATININE 0.6 mg/dL (0.55-1.3)
[2021-04-07] MEDS ORDERED: CLINDAMYCIN 900 MG PREMIX IVPB 900 MG/50 ML BAG IVPB SCH (13:15)
[2021-04-07] MEDS ORDERED: KCL 10 MEQ IVPB 10 MEQ/100 ML INFUS.BAG IVPB SCH (13:15)
[2021-04-07] MEDS ORDERED: HEPARIN NA (PORCINE) 5,000 UNITS/ML 1ML VIAL ONE ×3 (15:14→18:00)
[2021-04-07] MEDS ORDERED: MIDAZOLAM HCL 2 MG/2 ML SINGLE DOSE VIAL ONE ×4 (15:20→15:41)
[2021-04-07] MEDS ORDERED: PROPOFOL 20 ML ONE ×4 (15:36)
[2021-04-07] MEDS ORDERED: LIDOCAINE HCL 1%, 10 MG/ML (20ML VIAL) NR ONE (16:09)
[2021-04-07] MEDS ORDERED: HEPARIN NA (PORCINE) 5,000 UNITS/ML 1ML VIAL IVPUSH PRN ×5 (17:55→18:07)
[2021-04-07] MEDS ORDERED: ONDANSETRON 4 MG/2 ML VIAL IVPUSH PRN (17:56)
[2021-04-07] MEDS ORDERED: HEPARIN INFUSION - 25,000 UNITS/500 ML INFUS.BAG IVPB ONE (18:00)
[2021-04-07] MEDS ORDERED: HEPARIN SOD,PORK IN 0.45% NACL 25,000 UNITS/500 ML INFUS.BAG IVPB SCH (18:00)
[2021-04-07] MEDS ORDERED: SODIUM CHLORIDE 1,000 ML IV SCH (18:17)
[2021-04-07] MEDS: HEPARIN INFUSION - 25,000 UNITS/500 ML INFUS.BAG IVPB SCH (18:30)
[2021-04-07] MEDS: CLINDAMYCIN 900 MG PREMIX IVPB 900 MG/50 ML BAG IVPB SCH (19:28)
[2021-04-07] MEDS: LACTATED RINGERS SOLUTION 1,000 ML IV SCH (19:55)
[2021-04-07] MEDS ORDERED: INSULIN (NOVOLOG) ASPART 100 UNITS/ML 10ML VIAL ONE (21:12)
[2021-04-07] MEDS: ATORVASTATIN CA 20 MG TABLET (FP) PO SCH (21:17)
[2021-04-08] MEDS: HEPARIN INFUSION - 25,000 UNITS/500 ML INFUS.BAG IVPB SCH ×4 (01:35→22:10)
[2021-04-08] MEDS: CLINDAMYCIN 900 MG PREMIX IVPB 900 MG/50 ML BAG IVPB SCH ×3 (02:23→17:27)
[2021-04-08] MEDS ORDERED: PIPERACILLIN/TAZOBACTAM 3.375 GM VIAL IVPB ONE ×3 (03:49→17:22)
[2021-04-08] MEDS ORDERED: DEXTROSE 5%-WATER - 50 ML IVPB ONE ×3 (03:49→17:23)
[2021-04-08] MEDS: PIPERACILLIN/TAZOB 3.375 GM 3.375 GM in DEXTROSE 5%-WATER - 50 ML IVPB SCH ×3 (03:50→17:27)
[2021-04-08] MEDS: morphine SULFATE 4 MG/ML VIAL IVPUSH PRN ×3 (03:57→20:00)
[2021-04-08] MEDS: INSULIN SLIDING SCALE (NOVOLOG) 1 VIAL SQ SCH ×4 (06:03→21:28)
[2021-04-08] MEDS: GABAPENTIN 300 MG CAPSULE PO SCH (08:59)
[2021-04-08] MEDS: CLOPIDOGREL BISULFATE 75 MG TABLET (FP) PO SCH (08:59)
[2021-04-08] MEDS: LOSARTAN POTASSIUM 25 MG TABLET PO SCH (08:59)
[2021-04-08] MEDS: LACTATED RINGERS SOLUTION 1,000 ML IV SCH ×2 (09:16→18:24)
[2021-04-08 11:25] LABS: ALBUMIN 2.3 g/dl (3.4-5.0); BLOOD UREA NITROGEN 9.5 mg/dL (7-18)
[2021-04-08 11:28] LABS: CREATININE 0.7 mg/dL (0.55-1.3)
[2021-04-08 11:29] LABS: BILIRUBIN,TOTAL 0.6 mg/dL (0.2-1)
[2021-04-08 11:30] LABS: TOT PROT 6.4 g/dl (6.4-8.2)
[2021-04-08 12:43] LABS: BASO % 0.9 % (0-2.0); EOS % 0.6 % (0-4.5); HEMATOCRIT 33.7 % (35.4-49); HEMOGLOBIN 10.6 GM/dL (11.7-16.9); LYMPH % 12.5 % (8-40); MCH 24.9 pg (25.7-33.7); MCHC 31.6 g/dl (32.0-35.9); MEAN CELL VOLUME 78.9 fl (80-96); MEAN PLT VOLUME 9.6 fl (7.5-11.1); MONO % 6.5 % (3.8-10.2); NEUT % 79.5 % (42.8-82.8); PLATELET COUNT 144 10^3/uL (134-434); RBC 4.27 M/mm3 (4.00-5.60); RDW 17.1 % (11.9-15.9)
[2021-04-08] MEDS ORDERED: INSULIN (NOVOLOG) ASPART 100 UNITS/ML 10ML VIAL ONE (21:20)
[2021-04-08] MEDS: ATORVASTATIN CA 20 MG TABLET (FP) PO SCH (21:28)
[2021-04-09] MEDS ORDERED: DEXTROSE 5%-WATER - 50 ML IVPB ONE ×2 (01:22→09:47)
[2021-04-09] MEDS ORDERED: PIPERACILLIN/TAZOBACTAM 3.375 GM VIAL IVPB ONE ×2 (01:22→09:47)
[2021-04-09] MEDS: CLINDAMYCIN 900 MG PREMIX IVPB 900 MG/50 ML BAG IVPB SCH ×2 (02:04→09:51)
[2021-04-09] MEDS ORDERED: MELATONIN 5 MG TABLETS PO ONE (02:13)
[2021-04-09] MEDS: morphine SULFATE 4 MG/ML VIAL IVPUSH PRN (02:51)
[2021-04-09] MEDS: PIPERACILLIN/TAZOB 3.375 GM 3.375 GM in DEXTROSE 5%-WATER - 50 ML IVPB SCH ×2 (02:52→09:53)
[2021-04-09 05:28] VITALS: BP 104/60; PULSE 110; TEMP 97.1
[2021-04-09] MEDS: INSULIN SLIDING SCALE (NOVOLOG) 1 VIAL SQ SCH (07:45)
[2021-04-09 08:36] LABS: HEMATOCRIT 33.4 % (35.4-49); HEMOGLOBIN 10.8 GM/dL (11.7-16.9); MCH 24.9 pg (25.7-33.7); MCHC 32.3 g/dl (32.0-35.9); MEAN CELL VOLUME 77.3 fl (80-96); MEAN PLT VOLUME 10.1 fl (7.5-11.1); PLATELET COUNT 138 10^3/uL (134-434); RBC 4.33 M/mm3 (4.00-5.60); RDW 17.2 % (11.9-15.9)
[2021-04-09 09:29] LABS: ALBUMIN 2.5 g/dl (3.4-5.0); BILIRUBIN,TOTAL 0.6 mg/dL (0.2-1); BLOOD UREA NITROGEN 7.7 mg/dL (7-18); CALCIUM 8.3 mg/dL (8.5-10.1); CREATININE 0.7 mg/dL (0.55-1.3); TOT PROT 6.9 g/dl (6.4-8.2)
[2021-04-09] MEDS: LOSARTAN POTASSIUM 25 MG TABLET PO SCH (10:19)
[2021-04-09] MEDS: GABAPENTIN 300 MG CAPSULE PO SCH (10:19)
[2021-04-09] MEDS: CLOPIDOGREL BISULFATE 75 MG TABLET (FP) PO SCH (10:19)
== END 2021-04-09 14:13 | disposition left against medical advice (07) | DRG 271 ==
LOC: JER 11:29 → JERBED 13:37 → J6S 04-07 03:10
PROVIDERS: ADMIT Internal Medicine; ATTEND Internal Medicine
PROC: X27 New Technology, Cardiovascular System, Dilation (ICD-10-PCS; 2021-04-07)
PROC: 3E05317 Introduction of Other Thrombolytic into Peripheral Artery, Percutaneous Approach (ICD-10-PCS; 2021-04-07)
PROC: B41DZZZ Fluoroscopy of Aorta and Bilateral Lower Extremity Arteries (ICD-10-PCS; 2021-04-07)
PROC: 04CK3ZZ Extirpation of Matter from Right Femoral Artery, Percutaneous Approach (ICD-10-PCS; principal; 2021-04-07 16:00)
PROC: X27H385 Dilation of Right Femoral Artery with Sustained Release Drug-eluting Intraluminal Device, Percutaneous Approach, New Technology Group 5 (ICD-10-PCS; 2021-04-07 16:00)
DX: E11.52 Type 2 diabetes mellitus with diabetic peripheral angiopathy with gangrene (principal); I96 Gangrene, not elsewhere classified; E87.1 Hypo-osmolality and hyponatremia; I10 Essential (primary) hypertension; E78.5 Hyperlipidemia, unspecified; E86.0 Dehydration; R74.01 Elevation of levels of liver transaminase levels; D72.829 Elevated white blood cell count, unspecified
CPT/HCPCS: 36415; 71045-TC-FY; 76000-TC-FY; 80048; 80053; 81003; 82962; 83735; 84100; 85025; 85027; 85610; 85730; 86850; 86900; 86901; 86922; 87040; 87086; 93005; 93010; 93922; 93926-TC; 94760; 97162-GP; 99285-25; C9803; J1644; U0003; U0005